=== PATIENT | male | born 1955 | race Caucasian/White ===

== ENCOUNTER → 2018-02-20 | Outpatient (CLI) | payer OTHER ==
[~2018-02-20] MED LIST: ATOR40TA PO; Acid Control20 MG PO; Carvedilol12.5 MG PO; Celexa40 MG PO; DICL75ER PO; FISH1000 PO; HYDCHL50 PO; LISI20 PO; MAGOXI400; PREG75 PO; TRAM50 PO
[2018-02-20 10:38] LABS: BASOPHILS ABSOLUTE AUTO 0.07 K/mm3 (0.00-0.23); BASOPHILS PERCENT AUTO 1 % (0-2); EOSINOPHILS ABSOLUTE AUTO 0.17 K/mm3 (0.00-0.68); EOSINOPHILS PERCENT AUTO 2 % (0-6); Hematocrit 40.7 % (37.0-53.0); Hemoglobin 14.2 g/dL (13.5-17.5); IMMATURE GRAN ABSOLUTE AUTO 0.04 K/mm3 (0.00-0.10); IMMATURE GRAN PERCENT AUTO 0 % (0-1); LYMPHOCYTES ABSOLUTE AUTO 2.46 K/mm3 (0.84-5.20); LYMPHOCYTES PERCENT AUTO 22 % (21-46); MONOCYTES ABSOLUTE AUTO 0.55 K/mm3 (0.16-1.47); MONOCYTES PERCENT AUTO 5 % (4-13); Mean Corpuscular HGB 31.2 pg (26.0-34.0); Mean Corpuscular HGB Conc 34.9 g/dL (31.5-36.5); Mean Corpuscular Volume 90 fL (80-100); Mean Platelet Volume 11.7 fL (9.1-12.4); NEUTROPHILS ABSOLUTE AUTO 8.09 K/mm3 (1.96-9.15); NEUTROPHILS PERCENT AUTO 71 % (41-73); Platelet Count 235 K/mm3 (150-400); RDW Coefficient Variation 12.4 % (11.7-14.2); RDW Standard Deviation 40.5 fL (35.1-46.3); Red Blood Cell Count 4.55 M/mm3 (4.30-5.90); White Blood Cell Count 11.38 K/mm3 (4.00-11.30)
[2018-02-20 10:52] LABS: Alanine Aminotransfer (ALT/SGP 34 U/L (12-78); Albumin/Globulin Ratio 1.1 (0.8-1.8); Alk Phos 76 U/L (50-136); Anion Gap 10 mmol/L (6-16); Aspartate Aminotrans (AST/SGOT 18 U/L (12-37); Bilirubin, Total 0.6 mg/dL (0.1-1.0); Blood Urea Nitrogen 23 mg/dL (8-24); Bun/Creatinine Ratio 19.5 (12.0-20.0); CO2, Blood 27 mmol/L (21-32); Calcium, Blood 9.3 mg/dL (8.5-10.1); Chloride, Blood 103 mmol/L (98-108); Creatinine, Blood 1.18 mg/dL (0.60-1.20); Globulin, Blood 3.5 g/dL (2.2-4.0); Glomerular Filtration Rate >60 (60-); Glucose, Blood 153 mg/dL (70-99); Potassium, Blood 3.8 mmol/L (3.5-5.5); Sodium, Blood 140 mmol/L (136-145); Total Protein, Blood 7.5 g/dL (6.4-8.2)
== END ==
LOC: LAB 10:32 → LAB SHORT 10:32
PROVIDERS: Nurse Practitioner
DX: R11.0 Nausea (principal)
CPT/HCPCS: 80053; 85025

== ENCOUNTER 2019-05-05 11:31 | Day surgery (SDC) | payer OTHER ==
[~2019-05-05] VITALS: Ht 182.9 cm; Wt 101.2 kg
[~2019-05-05 11:31] MED LIST changes: +Protonix40 MG PO
== END 2019-05-05 13:26 | disposition home or self-care (01) ==
LOC: ORSCSDS 11:31
PROVIDERS: Student in an Organized Health Care Education/Training Program
PROC: 0DBK8ZX Excision of Ascending Colon, Via Natural or Artificial Opening Endoscopic, Diagnostic (ICD-10-PCS; principal; 2019-05-05 15:00)
PROC: 0DBE8ZX Excision of Large Intestine, Via Natural or Artificial Opening Endoscopic, Diagnostic (ICD-10-PCS; principal; 2019-05-05 15:00)
PROC: 3E0H8GC Introduction of Other Therapeutic Substance into Lower GI, Via Natural or Artificial Opening Endoscopic (ICD-10-PCS; principal; 2019-05-05 15:00)
DX: Z12.11 Encounter for screening for malignant neoplasm of colon (principal); K63.5 Polyp of colon; K64.8 Other hemorrhoids; K57.30 Diverticulosis of large intestine without perforation or abscess without bleeding; I10 Essential (primary) hypertension; G47.33 Obstructive sleep apnea (adult) (pediatric); E78.00 Pure hypercholesterolemia, unspecified; Z87.891 Personal history of nicotine dependence; Z79.899 Other long term (current) drug therapy
CPT/HCPCS: 88305; J2704; J7120

== ENCOUNTER 2020-02-24 13:31 | Day surgery (SDC) | payer OTHER | END 2020-02-24 22:49 | disposition home or self-care (01) | LOC: CT 13:31 | DX: C79.51 Secondary malignant neoplasm of bone (principal); R19.5 Other fecal abnormalities; C64.9 Malignant neoplasm of unspecified kidney, except renal pelvis | CPT/HCPCS: 20225; 77012; 88305; 88311; 88341; 88342 ==

== ENCOUNTER 2020-03-01 13:56 | Emergency (ER) | payer OTHER ==
[~2020-03-01] VITALS: Ht 180.3 cm; Wt 90.7 kg
[2020-03-01 14:48] LABS: BASOPHILS ABSOLUTE AUTO 0.05 K/mm3 (0.00-0.23); BASOPHILS PERCENT AUTO 1 % (0-2); EOSINOPHILS ABSOLUTE AUTO 0.26 K/mm3 (0.00-0.68); EOSINOPHILS PERCENT AUTO 3 % (0-6); Hematocrit 37.8 % (37.0-53.0); Hemoglobin 12.5 g/dL (13.5-17.5); IMMATURE GRAN ABSOLUTE AUTO 0.03 K/mm3 (0.00-0.10); IMMATURE GRAN PERCENT AUTO 0 % (0-1); LYMPHOCYTES ABSOLUTE AUTO 2.37 K/mm3 (0.84-5.20); LYMPHOCYTES PERCENT AUTO 31 % (21-46); MONOCYTES ABSOLUTE AUTO 0.67 K/mm3 (0.16-1.47); MONOCYTES PERCENT AUTO 9 % (4-13); Mean Corpuscular HGB 29.1 pg (26.0-34.0); Mean Corpuscular HGB Conc 33.1 g/dL (31.5-36.5); Mean Corpuscular Volume 88 fL (80-100); Mean Platelet Volume 11.1 fL (9.1-12.4); NEUTROPHILS ABSOLUTE AUTO 4.39 K/mm3 (1.96-9.15); NEUTROPHILS PERCENT AUTO 57 % (41-73); Platelet Count 223 K/mm3 (150-400); RDW Coefficient Variation 13.7 % (11.7-14.2); RDW Standard Deviation 44.3 fL (35.1-46.3); Red Blood Cell Count 4.29 M/mm3 (4.30-5.90); White Blood Cell Count 7.77 K/mm3 (4.00-11.30)
[2020-03-01 15:21] LABS: Albumin, Blood 3.8 g/dL (3.4-5.0); Albumin/Globulin Ratio 1.1 (0.8-1.8); Bilirubin, Total 0.4 mg/dL (0.1-1.0); Bun/Creatinine Ratio 23.8 (12.0-20.0); Calcium, Blood 9.2 mg/dL (8.5-10.1); Creatinine, Blood 1.51 mg/dL (0.60-1.20); Globulin, Blood 3.5 g/dL (2.2-4.0); Potassium, Blood 4.2 mmol/L (3.5-5.5); Total Protein, Blood 7.3 g/dL (6.4-8.2)
== END 2020-03-01 17:30 | disposition short-term general hospital (02) ==
LOC: ER 13:56
PROVIDERS: Physician Assistant
DX: I61.0 Nontraumatic intracerebral hemorrhage in hemisphere, subcortical (principal); C79.31 Secondary malignant neoplasm of brain; Z88.5 Allergy status to narcotic agent; Z79.899 Other long term (current) drug therapy
CPT/HCPCS: 36415; 70450; 80053; 85025; 93005; 93010; 96365; 99285-25; J7050

== ENCOUNTER 2020-04-28 13:41 | Inpatient (IN) | payer OTHER ==
[~2020-04-28] VITALS: Ht 182.9 cm; Wt 104.3 kg
[2020-04-28 17:33] LABS: BASOPHILS ABSOLUTE AUTO 0.06 K/mm3 (0.00-0.23); BASOPHILS PERCENT AUTO 1 % (0-2); EOSINOPHILS ABSOLUTE AUTO 0.19 K/mm3 (0.00-0.68); EOSINOPHILS PERCENT AUTO 2 % (0-6); Hematocrit 39.9 % (37.0-53.0); Hemoglobin 13.1 g/dL (13.5-17.5); IMMATURE GRAN ABSOLUTE AUTO 0.02 K/mm3 (0.00-0.10); IMMATURE GRAN PERCENT AUTO 0 % (0-1); LYMPHOCYTES PERCENT AUTO 27 % (21-46); MONOCYTES ABSOLUTE AUTO 0.73 K/mm3 (0.16-1.47); MONOCYTES PERCENT AUTO 8 % (4-13); Mean Corpuscular HGB 28.2 pg (26.0-34.0); Mean Corpuscular HGB Conc 32.8 g/dL (31.5-36.5); Mean Corpuscular Volume 86 fL (80-100); Mean Platelet Volume 10.7 fL (9.1-12.4); NEUTROPHILS ABSOLUTE AUTO 5.79 K/mm3 (1.96-9.15); NEUTROPHILS PERCENT AUTO 62 % (41-73); Platelet Count 234 K/mm3 (150-400); RDW Coefficient Variation 13.2 % (11.7-14.2); RDW Standard Deviation 41.4 fL (35.1-46.3); Red Blood Cell Count 4.64 M/mm3 (4.30-5.90); White Blood Cell Count 9.29 K/mm3 (4.00-11.30)
[2020-04-28 17:54] LABS: Albumin, Blood 4.1 g/dL (3.4-5.0); Bilirubin, Total 0.6 mg/dL (0.1-1.0); Bun/Creatinine Ratio 21.5 (12.0-20.0); Calcium, Blood 9.5 mg/dL (8.5-10.1); Creatinine, Blood 1.49 mg/dL (0.60-1.20); Globulin, Blood 4.1 g/dL (2.2-4.0); Potassium, Blood 3.8 mmol/L (3.5-5.5); Total Protein, Blood 8.2 g/dL (6.4-8.2)
[2020-04-28 18:26] LABS: International Normalized Ratio 1.01; Prothrombin Time Results 10.8 Sec (9.7-11.5)
[2020-04-28] MEDS ORDERED: INLYTA5 MG PO (18:36)
--- NOTE | 2020-04-28 21:00 | NUR ---
ADMIT FROM ER. PATIENT ARRIVED VIA W/C @ 191. PATIENT ALERT AND ORIENTED, ABLE TO TRANSFER TO BED WITHOUT HELP (PT CHOICE). PT HAS COMPLETE CONTROL OF MOVEMENT OF HIS LT LEG. HE IS HAVING PAIN 3/10 IN HIS LT LEG. ABLE TO REPOSITION TO COMFORT. PATIENT C/O NAUSEA WITH COUGHING UP PHLEGM, NO EMESIS. BROUGHT IN HIS CHEMOTHERAPY PILLS FOR HIS NIGHT TIME DOSE. CALL LIGHT WITHIN REACH.
--- NOTE | 2020-04-29 07:23 | NUR ---
PATIENT'S PAIN IN LT LEG HAS BEEN WELL CONTROLLED WITH PO PAIN MEDICATION. HE HAS SLEPT INTERMITTENTLY T/O NIGHT. PATIENT HAS HTNAND STATED THAT HE DID NOT HAVE HIS BP MEDS YESTERDAY. CALLED [facility] HOSPITALIST, ORDER FOR HYDRALAZINE 10MG IVP. BP RECHECK ONE HOUR LATER WAS 210/104. aT 0530 GAVE AM PO HTN MEDICATIONS EARLY. RECHECK @0700 185/94. REPORT TO SHASHI May CALL KAT IN REACH.
--- NOTE | 2020-04-29 07:54 | NUR ---
SPOKE WITH DR PRO REGARDING PT'S BP. SEE ORDERS. MED GIVEN ORDERED. DR PRO REPORTS TO HOLD AM MEDS THIS AM INCLUDING HOME MED REPORTED TO BE ORAL CHEMO.
--- NOTE | 2020-04-29 08:45 | NUR ---
DR LUCIO HERE TO SEE PT.
--- NOTE | 2020-04-29 08:54 | NUR ---
DISCUSSED PT'S BP WITH DR PRO, REPORTS TO RECHECK IN A COUPLE HOURS, NO NEW ORDERS AT THIS TIME.
--- NOTE | 2020-04-29 10:19 | NUR ---
DR ALYTRATE RECENTLY TO SEE PT.
--- NOTE | 2020-04-29 12:00 | NUR ---
Spiritual care visit conducted. Patient is sitting up in bed and alert. Patient immediately tells me about the plan to install a casa in patient's leg. Patient then shares about his cancer and the symptoms he is dealing with. Patient talks about his spouse and someone who is upbeat and strong even inspite of her struggle with scoliosis. Patient explains his belief system as one that does not believe in God but believes that people are energy and when we the energy is transferred to a new life form (ie animal, person or tree). Patient is inspired by rock and roll. He shares about the many concerts he has attended. I listen empathically, normalize patient's experience and establish therapeutic alliance. Patient responds well and shows signs of an elevated mood. I will continue to remain available to patient and family.
--- NOTE | 2020-04-29 12:22 | NUR ---
DISCUSSED PT'S MED/VS WITH DR PRO.
--- NOTE | 2020-04-29 19:00 | NUR ---
SHIFT SUMMARY PT BEEN NPO TODAY. PT BEEN MED WITH SIP OF WATER. PT CONT TO WAIT TO HAVE PROCEDURE, BEEN UPDATED OF POSSIBLE TIMES OF PROCEDURE PER DAYSURGERY. PT BEEN REFUSING PAIN MEDICATION WELL BEING REPOSITIONED. PT BP BETTER THIS AFTERNOON, BEEN DISCUSSING VS WITH DR PRO. PT CALL LIGHT IN REACH, REPORT GIVEN TO HS RN.
--- NOTE | 2020-04-29 19:43 | NUR ---
PATIENT ASKED FOR PAIN MED AT BEGINNING OF SHIFT. UPDATE FROM SURGEON THAT HE IS NEXT ON THE ADGENDA FOR O.R. TOOK ALL PM MEDICATIONS EARLY DUE TO OR AND THE INABILITY FOR AT LEAST ONE OF THE TO BE A LATE MED (CHEMO).
--- NOTE | 2020-04-30 01:09 | NUR ---
ASSUMED PT CARE AT 0040 PT ARRIVED ON UNIT FOR RECOVERY FROM OR S/P PINNING TO LEFT HIP AFTER A PATHOLOGICAL FX. PT ARRIVED MOANING IN PAIN. MEDICATED WITH FENTANYL PER ORDERS; HOWEVER, PT STATES UNEFFECTIVE. ATTEMPTED 0.5MG OF DILAUDID, WHICH APPEARED TO BE MORE EFFECTIVE FOR PT. DEEP BREATHING AND COUGHING ADEQUATELY. 4L OF OXYGEN WITH OXYGEN SATURATIONS MAINTAINING 97%. PT NOTED TO BE NSR WITH PVCS AND OCCASIONAL BIGEMINY RHYTHM NOTED; HR 70-80'S. BP'S LABILE WITH PAIN; HOWEVER, CURRENTLY WITHIN PT'S BASELINE WITH SBP 120-130'S. PT IS ALERT AND ORIENTED AND ABLE TO COMMUNICATE AND FOLLOW COMMANDS. WILL CONTINUE TO MONITOR PAIN AND RESPIRATORY STATUS.
--- NOTE | 2020-04-30 01:40 | NUR ---
REPORT GIVEN TO PRETTY RUBIO PT BEING TRANSFERRED FROM ICU 01 TO ROOM 215
--- NOTE | 2020-04-30 02:02 | NUR ---
Patient returned from icu/post op recovery. C/O 08/14 pain, IV and oral pain medications given. pt states that the cramping in his lt thigh is intermittent. He ate half of a jello and within about 10 mins was nauseated. reglan iv given.
[2020-04-30 04:30] LABS: BASOPHILS ABSOLUTE AUTO 0.04 K/mm3 (0.00-0.23); BASOPHILS PERCENT AUTO 0 % (0-2); EOSINOPHILS ABSOLUTE AUTO 0.01 K/mm3 (0.00-0.68); EOSINOPHILS PERCENT AUTO 0 % (0-6); Hematocrit 35.3 % (37.0-53.0); Hemoglobin 11.5 g/dL (13.5-17.5); IMMATURE GRAN ABSOLUTE AUTO 0.09 K/mm3 (0.00-0.10); IMMATURE GRAN PERCENT AUTO 1 % (0-1); LYMPHOCYTES ABSOLUTE AUTO 1.54 K/mm3 (0.84-5.20); LYMPHOCYTES PERCENT AUTO 9 % (21-46); MONOCYTES ABSOLUTE AUTO 0.95 K/mm3 (0.16-1.47); MONOCYTES PERCENT AUTO 5 % (4-13); Mean Corpuscular HGB Conc 32.6 g/dL (31.5-36.5); Mean Corpuscular Volume 86 fL (80-100); NEUTROPHILS ABSOLUTE AUTO 15.31 K/mm3 (1.96-9.15); NEUTROPHILS PERCENT AUTO 85 % (41-73); Platelet Count 208 K/mm3 (150-400); RDW Coefficient Variation 13.3 % (11.7-14.2); RDW Standard Deviation 41.4 fL (35.1-46.3); White Blood Cell Count 17.94 K/mm3 (4.00-11.30)
[2020-04-30 04:44] LABS: Bun/Creatinine Ratio 22.4 (12.0-20.0); Calcium, Blood 8.8 mg/dL (8.5-10.1); Creatinine, Blood 1.43 mg/dL (0.60-1.20); Potassium, Blood 3.1 mmol/L (3.5-5.5)
--- NOTE | 2020-04-30 05:04 | NUR ---
SHIFT SUMMARY PATIENT'S PAIN IS UNDERCONTROL. 1/10 ON PAIN SCALE.HE HAS PULSES AND GOOD CIRCULATION IN HIS LT LEG. BULKY DRESSINGS TO HIS LT HIP, THIGH AND JUST ABOVE HIS KNEE. ALL DRESSING ARE CLEAN DRY AND INTACT. NO FURTHER NAUSEA SINCE THE ZOFRAN WAS GIVEN. NO ACUTE CHANGES, CALL LIGHT IN REACH.
--- NOTE | 2020-04-30 08:23 | NUR ---
04/30/20 0823 Genevieve Orozco VERIFICATIONS: EDIT CHART.
--- NOTE | 2020-04-30 19:26 | NUR ---
SHIFT SUMMARY PATIENT HAS HAD MINIMAL PAIN THIS SHIFT. UP WITH PT. TOLERATING PO. EASILY FRUSTRATED RE: HOSPTTALIZATION, IMMOBILTY. STATES "I'M GOING HOME TOMORROW, I CANT STAND THIS PLACE ANY LONGER." PATIENT THEN APOLOGIZES "FOR BEING FRUSTRATED." CIRC CHECKS WNL. NO ACUTE CHANGES.
--- NOTE | 2020-04-30 22:35 | NUR ---
ASSUMED CARE OF PT USING SBAR METHOD.
--- NOTE | 2020-04-30 22:47 | NUR ---
ELEVATED BP PTS BP ELEVATED ON INITIAL SHIFT CHECK. PRIOR NURSE MEDICATED PER EMAR WITH PRN HYDRALAZINE. ON FOLLOW UP CHECK BP STILL ELEVATED AT 204/112. SPOKE WITH [facility]PITAL[facility], REGARDING BP. ORDERS TO GIVE DOSE OF PRN CLONIDINE AND CONTINUE TO MONITOR. WILL REASSESS PTS VITALS. PT CURRENTLY RESTING IN BED, DENIES CHEST PAIN, SOB OR DISCOMFORT. DENIES OTHER NEEDS AT THIS TIME.
[2020-05-01 05:20] LABS: BASOPHILS ABSOLUTE AUTO 0.03 K/mm3 (0.00-0.23); BASOPHILS PERCENT AUTO 0 % (0-2); EOSINOPHILS PERCENT AUTO 0 % (0-6); Hematocrit 31.6 % (37.0-53.0); Hemoglobin 10.3 g/dL (13.5-17.5); IMMATURE GRAN ABSOLUTE AUTO 0.05 K/mm3 (0.00-0.10); IMMATURE GRAN PERCENT AUTO 0 % (0-1); LYMPHOCYTES ABSOLUTE AUTO 3.01 K/mm3 (0.84-5.20); LYMPHOCYTES PERCENT AUTO 19 % (21-46); MONOCYTES ABSOLUTE AUTO 1.47 K/mm3 (0.16-1.47); MONOCYTES PERCENT AUTO 10 % (4-13); Mean Corpuscular HGB 28.1 pg (26.0-34.0); Mean Corpuscular HGB Conc 32.6 g/dL (31.5-36.5); Mean Corpuscular Volume 86 fL (80-100); Mean Platelet Volume 11.4 fL (9.1-12.4); NEUTROPHILS ABSOLUTE AUTO 10.96 K/mm3 (1.96-9.15); NEUTROPHILS PERCENT AUTO 71 % (41-73); Platelet Count 191 K/mm3 (150-400); RDW Coefficient Variation 13.3 % (11.7-14.2); RDW Standard Deviation 41.3 fL (35.1-46.3); Red Blood Cell Count 3.66 M/mm3 (4.30-5.90); White Blood Cell Count 15.52 K/mm3 (4.00-11.30)
--- NOTE | 2020-05-01 05:31 | NUR ---
SHIFT SUMMARY [id number]. BP ELEVATED AFTER PRN CLONIDINE, GIVEN ANOTHER PRN DOSE OF CLONIDINE PER EMAR. PT HAS BEEN SLEEPING IN BED T/O NIGHT, TOLERATING PO WELL. NAUSEA AT BEGINNING OF SHIFT, DENIES SINCE. STATES PAIN IS MANAGED AND AT A /. PT HAS BEEN UP TO CHAIR AND BACK TO BED. TOLERATES WELL. PLAN IS TO CONTINUE MOBILIZING PT AND ENCOURAGE AMBULATION
[2020-05-01 05:55] LABS: Anion Gap 9 mmol/L (6-16); Blood Urea Nitrogen 29 mg/dL (8-24); Bun/Creatinine Ratio 23.2 (12.0-20.0); CO2, Blood 30 mmol/L (21-32); Calcium, Blood 8.9 mg/dL (8.5-10.1); Chloride, Blood 101 mmol/L (98-108); Creatinine, Blood 1.25 mg/dL (0.60-1.20); Glomerular Filtration Rate >60 (60-); Glucose, Blood 120 mg/dL (70-99); Sodium, Blood 140 mmol/L (136-145)
[2020-05-01] MEDS ORDERED: BISA5EC PO (12:52)
[2020-05-01] MEDS ORDERED: ACET325 PO (12:52)
[2020-05-01] MEDS ORDERED: CLON.1 PO (12:54)
[2020-05-01] MEDS ORDERED: HYDRA25 PO (12:56)
[2020-05-01] MEDS ORDERED: ONDA4ODT PO (12:56)
[2020-05-01] MEDS ORDERED: OXYC5 PO (12:57)
[2020-05-01] MEDS ORDERED: SENN187 PO (12:58)
--- NOTE | 2020-05-01 14:20 | NUR ---
DAX HAGER RN CARE MANAGER NOTIFIED OF HOME HEALTH ORDER, STATES WILL NOTIFY HOME [facility]ALTH [facility] AND WILL FAX A PACKET TO [facility].
--- NOTE | 2020-05-01 14:50 | NUR ---
DISCHARGE PT PROVIDED WITH WRITTEN AND VERBAL DISCHARGE INSTRUCTIONS, HE REPORTED UNDERSTANDING. SCRIPTS AND CLEAN DRESSINGS PROVIDED. PRESCRIPTIONS WERE FAXED TO PT'S PHARMACY. PT ESCORTED OUT IN W/C BY CATHERINE AREVALO. PT DISCHARGED AT APPROXIMATELY 1413
== END 2020-05-01 14:11 | disposition home health service (06) | DRG 481 ==
LOC: ER 13:41 → SURS 18:21
PROVIDERS: Nurse Practitioner Acute Care; Physician Assistant; ADMIT Family Medicine
PROC: 0QS936Z Reposition Left Femoral Shaft with Intramedullary Internal Fixation Device, Percutaneous Approach (ICD-10-PCS; principal; 2020-04-30)
DX: M84.552A Pathological fracture in neoplastic disease, left femur, initial encounter for fracture (principal); C64.9 Malignant neoplasm of unspecified kidney, except renal pelvis; C79.31 Secondary malignant neoplasm of brain; C79.51 Secondary malignant neoplasm of bone; J21.9 Acute bronchiolitis, unspecified; D72.829 Elevated white blood cell count, unspecified; E66.9 Obesity, unspecified; Z20.828 Contact with and (suspected) exposure to other viral communicable diseases; I10 Essential (primary) hypertension; E78.5 Hyperlipidemia, unspecified; G47.33 Obstructive sleep apnea (adult) (pediatric); Z68.31 Body mass index [BMI] 31.0-31.9, adult; Z88.5 Allergy status to narcotic agent; Z87.891 Personal history of nicotine dependence; Z79.899 Other long term (current) drug therapy; Z79.1 Long term (current) use of non-steroidal anti-inflammatories (NSAID)
CPT/HCPCS: 36415; 71045; 73552; 80048; 80053; 83735; 85025; 85610; 94762; 96374-59; 97110; 97162; 97166; 97530; 99284-25; A9270; A9270-GY; C1713; J0360; J0690; J1170; J1644; J2250; J2405; J2704; J2765; J3010; J7120; U0002

== ENCOUNTER 2020-06-29 15:24 | Emergency (ER) | payer OTHER ==
[~2020-06-29] VITALS: Ht 182.9 cm; Wt 96.6 kg
[~2020-06-29 15:24] MED LIST changes: +ACET325 PO; +BISA5EC PO; +CLON.1 PO; +HYDRA25 PO; +INLYTA5 MG PO; +ONDA4ODT PO; +OXYC5 PO; +SENN187 PO
[2020-06-29 16:02] LABS: BASOPHILS ABSOLUTE AUTO 0.05 K/mm3 (0.00-0.23); BASOPHILS PERCENT AUTO 1 % (0-2); EOSINOPHILS ABSOLUTE AUTO 0.02 K/mm3 (0.00-0.68); EOSINOPHILS PERCENT AUTO 0 % (0-6); Hematocrit 40.6 % (37.0-53.0); Hemoglobin 13.2 g/dL (13.5-17.5); IMMATURE GRAN ABSOLUTE AUTO 0.01 K/mm3 (0.00-0.10); IMMATURE GRAN PERCENT AUTO 0 % (0-1); LYMPHOCYTES ABSOLUTE AUTO 1.63 K/mm3 (0.84-5.20); LYMPHOCYTES PERCENT AUTO 19 % (21-46); MONOCYTES ABSOLUTE AUTO 0.41 K/mm3 (0.16-1.47); MONOCYTES PERCENT AUTO 5 % (4-13); Mean Corpuscular HGB 25.9 pg (26.0-34.0); Mean Corpuscular HGB Conc 32.5 g/dL (31.5-36.5); Mean Corpuscular Volume 80 fL (80-100); Mean Platelet Volume 10.8 fL (9.1-12.4); NEUTROPHILS ABSOLUTE AUTO 6.44 K/mm3 (1.96-9.15); NEUTROPHILS PERCENT AUTO 75 % (41-73); Platelet Count 284 K/mm3 (150-400); RDW Coefficient Variation 13.9 % (11.7-14.2); RDW Standard Deviation 40.3 fL (35.1-46.3); Red Blood Cell Count 5.09 M/mm3 (4.30-5.90); White Blood Cell Count 8.56 K/mm3 (4.00-11.30)
[2020-06-29 16:21] LABS: Albumin, Blood 4.1 g/dL (3.4-5.0); Albumin/Globulin Ratio 1.1 (0.8-1.8); Bilirubin, Total 0.8 mg/dL (0.1-1.0); Bun/Creatinine Ratio 19.1 (12.0-20.0); Calcium, Blood 9.4 mg/dL (8.5-10.1); Creatinine, Blood 1.36 mg/dL (0.60-1.20); Globulin, Blood 3.9 g/dL (2.2-4.0)
[2020-06-29 16:31] LABS: Source, Urine Clean Catch
[2020-06-29 16:40] LABS: Appearance, Urine Clear (Clear); Bilirubin, Urine Neg (Neg); Blood, Urine Neg (Neg); Color, Urine Yellow (P-Yellow); Glucose Qualitative, Urine Neg (Neg); Ketones, Urine 1+ (Neg); Leukocyte Esterase, Urine 1+ (Neg); Nitrite, Urine Neg (Neg); Protein, Urine 2+ (Neg); Specific Gravity, Urine 1.005 (1.003-1.022); Urobilinogen, Urine 2+ (Normal)
[2020-06-29 16:48] LABS: Bacteria Mod /hpf; Mucus Light (0-Heavy); Red Blood Cells, Urine 0-2 /hpf (0-2); Squamous Epithelial Cells Rare /hpf (Few); White Blood Cells, Urine 0-2 /hpf (0-5)
[2020-06-29] MEDS ORDERED: Zofran8 MG PO (17:00)
== END 2020-06-29 17:24 | disposition home or self-care (01) ==
LOC: ER 15:24
PROVIDERS: Emergency Medicine
DX: C64.9 Malignant neoplasm of unspecified kidney, except renal pelvis (principal); I10 Essential (primary) hypertension; K21.9 Gastro-esophageal reflux disease without esophagitis; Z87.891 Personal history of nicotine dependence; Z92.21 Personal history of antineoplastic chemotherapy; Z88.5 Allergy status to narcotic agent; Z79.899 Other long term (current) drug therapy
CPT/HCPCS: 36415; 80053; 81001; 85025; 87086; 93005; 93010; 96361; 96374; 99283-25; J2405; J7030

== ENCOUNTER 2020-11-29 09:42 | Emergency (ER) | payer OTHER ==
[~2020-11-29] VITALS: Ht 180.3 cm; Wt 88.5 kg
[~2020-11-29 09:42] MED LIST changes: +Zofran8 MG PO
[2020-11-29] MEDS ORDERED: XARELTO20 MG PO (10:13)
[2020-11-29 10:19] LABS: BASOPHILS ABSOLUTE AUTO 0.03 K/mm3 (0.00-0.23); BASOPHILS PERCENT AUTO 0 % (0-2); EOSINOPHILS PERCENT AUTO 1 % (0-6); Hematocrit 39.1 % (37.0-53.0); Hemoglobin 13.1 g/dL (13.5-17.5); IMMATURE GRAN ABSOLUTE AUTO 0.03 K/mm3 (0.00-0.10); IMMATURE GRAN PERCENT AUTO 0 % (0-1); LYMPHOCYTES ABSOLUTE AUTO 1.02 K/mm3 (0.84-5.20); LYMPHOCYTES PERCENT AUTO 13 % (21-46); MONOCYTES PERCENT AUTO 8 % (4-13); Mean Corpuscular HGB 26.2 pg (26.0-34.0); Mean Corpuscular HGB Conc 33.5 g/dL (31.5-36.5); Mean Corpuscular Volume 78 fL (80-100); Mean Platelet Volume 11.1 fL (9.1-12.4); NEUTROPHILS PERCENT AUTO 77 % (41-73); Platelet Count 215 K/mm3 (150-400); RDW Standard Deviation 48.1 fL (35.1-46.3); White Blood Cell Count 7.88 K/mm3 (4.00-11.30)
[2020-11-29 10:31] LABS: Albumin, Blood 3.2 g/dL (3.4-5.0); Albumin/Globulin Ratio 0.9 (0.8-1.8); Bilirubin, Total 1.3 mg/dL (0.1-1.0); Bun/Creatinine Ratio 17.3 (12.0-20.0); Calcium, Blood 7.7 mg/dL (8.5-10.1); Creatinine, Blood 1.96 mg/dL (0.60-1.20); Globulin, Blood 3.5 g/dL (2.2-4.0); Potassium, Blood 3.4 mmol/L (3.5-5.5); Total Protein, Blood 6.7 g/dL (6.4-8.2)
[2020-11-29] MEDS ORDERED: Prednisone20 MG PO (13:18)
== END 2020-11-29 14:38 | disposition home or self-care (01) ==
LOC: ER 09:42
PROVIDERS: Emergency Medicine
DX: K52.9 Noninfective gastroenteritis and colitis, unspecified (principal); I10 Essential (primary) hypertension; E78.5 Hyperlipidemia, unspecified; K21.9 Gastro-esophageal reflux disease without esophagitis; Z88.5 Allergy status to narcotic agent; Z79.899 Other long term (current) drug therapy
CPT/HCPCS: 74177; 80053; 85025; 85730; 93005; 93010; 99284-25; J7512; Q9967

== ENCOUNTER 2021-05-14 12:02 | Emergency (ER) | payer OTHER ==
[~2021-05-14] VITALS: Ht 182.9 cm; Wt 104.3 kg
[~2021-05-14 12:02] MED LIST changes: +Prednisone20 MG PO; +XARELTO20 MG PO
[2021-05-14 12:28] LABS: BASOPHILS ABSOLUTE AUTO 0.01 K/mm3 (0.00-0.23); BASOPHILS PERCENT AUTO 0 % (0-2); EOSINOPHILS ABSOLUTE AUTO 0.12 K/mm3 (0.00-0.68); EOSINOPHILS PERCENT AUTO 1 % (0-6); Hematocrit 26.6 % (37.0-53.0); Hemoglobin 7.8 g/dL (13.5-17.5); IMMATURE GRAN ABSOLUTE AUTO 0.27 K/mm3 (0.00-0.10); IMMATURE GRAN PERCENT AUTO 2 % (0-1); LYMPHOCYTES ABSOLUTE AUTO 1.05 K/mm3 (0.84-5.20); LYMPHOCYTES PERCENT AUTO 8 % (21-46); MONOCYTES ABSOLUTE AUTO 0.82 K/mm3 (0.16-1.47); MONOCYTES PERCENT AUTO 6 % (4-13); Mean Corpuscular HGB 21.8 pg (26.0-34.0); Mean Corpuscular HGB Conc 29.3 g/dL (31.5-36.5); Mean Corpuscular Volume 75 fL (80-100); Mean Platelet Volume 10.4 fL (9.1-12.4); NEUTROPHILS ABSOLUTE AUTO 10.54 K/mm3 (1.96-9.15); NEUTROPHILS PERCENT AUTO 82 % (41-73); Platelet Count 240 K/mm3 (150-400); RDW Coefficient Variation 21.2 % (11.7-14.2); RDW Standard Deviation 55.7 fL (35.1-46.3); Red Blood Cell Count 3.57 M/mm3 (4.30-5.90); White Blood Cell Count 12.81 K/mm3 (4.00-11.30)
[2021-05-14 12:55] LABS: Albumin, Blood 3.1 g/dL (3.4-5.0); Albumin/Globulin Ratio 0.9 (0.8-1.8); Bilirubin, Total 0.4 mg/dL (0.1-1.0); Bun/Creatinine Ratio 36.2 (12.0-20.0); Calcium, Blood 8.6 mg/dL (8.5-10.1); Creatinine, Blood 1.3 mg/dL (0.60-1.20); Globulin, Blood 3.3 g/dL (2.2-4.0); Potassium, Blood 4.1 mmol/L (3.5-5.5); Total Protein, Blood 6.4 g/dL (6.4-8.2); Troponin I 0.022 ng/mL (0.000-0.040)
== END 2021-05-14 16:25 | disposition home or self-care (01) ==
LOC: ER 12:02
PROVIDERS: Emergency Medicine
DX: R41.82 Altered mental status, unspecified (principal); D49.6 Neoplasm of unspecified behavior of brain; Z51.5 Encounter for palliative care; Z66 Do not resuscitate; Z79.01 Long term (current) use of anticoagulants; Z79.899 Other long term (current) drug therapy
CPT/HCPCS: 36415; 70450; 80053; 84484; 85025; 93005; 93010; 99285-25; J7030